=== PATIENT | male | born 1990 | race Caucasian/White ===

== ENCOUNTER 2024-08-21 03:27 | Emergency (ER) | payer MEDICAID ==
[~2024-08-21] VITALS: Ht 165.1 cm; Wt 81.8 kg
[2024-08-21 03:42] VITALS: BP 141/74; PULSE 77; RESP 16; TEMP 97.8; O2SAT 99
[2024-08-21] MEDS: FAMOTIDINE 20 MG TABLET PO ONE (05:39)
[2024-08-21] MEDS: BENZONATATE 100 MG CAPSULE PO ONE (05:39)
[2024-08-21] MEDS ORDERED: FAMO20 PO (06:23)
[2024-08-21] MEDS ORDERED: BENZ-227 PO (06:23)
== END 2024-08-21 06:35 | disposition home or self-care (01) ==
LOC: EMS 03:29
DX: R05.9 Cough, unspecified (principal); F17.210 Nicotine dependence, cigarettes, uncomplicated; Z88.0 Allergy status to penicillin
CPT/HCPCS: 99283